=== PATIENT | female | born 2000 | race African-American/Black ===

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

== ENCOUNTER 2018-02-07 14:13 | Emergency (ER) | payer OTHER ==
[~2018-02-07 14:13] MED LIST: CEPH-460 PO
[2018-02-07 14:27] VITALS: BP 129/58; PULSE 85; RESP 18; TEMP 98.7; O2SAT 100
== END 2018-02-07 17:46 | disposition left against medical advice (07) ==
LOC: NETRI 14:13
DX: Z03.89 Encounter for observation for other suspected diseases and conditions ruled out (principal)
CPT/HCPCS: 99281